=== PATIENT | male | born 1970 | race Caucasian/White ===

== ENCOUNTER 2018-03-03 18:17 | Emergency (ER) | payer BC, MEDICAID ==
[~2018-03-03] VITALS: Ht 180.3 cm; Wt 97.0 kg
[2018-03-03] MEDS ORDERED: DEXT10TA4 PO (18:24)
[2018-03-03] MEDS ORDERED: vitamin d (18:24)
[2018-03-03] MEDS ORDERED: SODIUM CHLORIDE 0.9% 1,000 ML IV ONE (18:37)
[2018-03-03] MEDS ORDERED: LORAZEPAM 2MG/ML CPJ IV ONE (18:45)
[2018-03-03 19:07] LABS: CHLORIDE 104 mEq/L (98-107)
[2018-03-03 19:08] LABS: BASOPHILS % 0.3 % (0.0-2.0); EOSINOPHILS % 0.3 % (0.0-5.0); HEMATOCRIT. 37.4 % (42.0-52.0); HEMOGLOBIN. 12.2 g/dL (14.0-18.0); LYMPHOCYTES % 23.6 % (20.0-50.0); MEAN CORPUSCULAR HEMOGLOBIN 21.2 pg (28.0-32.0); MEAN CORPUSCULAR VOLUME 64.7 fL (80.0-94.0); MONOCYTES % 7.8 % (2.0-8.0); PLATELET 213 x1000/uL (130-400); RED BLOOD CELL COUNT 5.78 mill/uL (4.7-6.1); RED CELL DISTRIBUTION WIDTH 15.8 % (11.6-14.6)
[2018-03-03 19:10] LABS: ETHANOL BLOOD 19 mg/dL
[2018-03-03 19:25] LABS: PLATELET ESTIMATE NORMAL
[2018-03-04 00:09] VITALS: BP 151/91
== END 2018-03-04 00:10 | disposition home or self-care (01) ==
LOC: ER 18:17
DX: F41.1 Generalized anxiety disorder (principal); F43.0 Acute stress reaction; T43.621A Poisoning by amphetamines, accidental (unintentional), initial encounter; F10.10 Alcohol abuse, uncomplicated; I10 Essential (primary) hypertension; F90.9 Attention-deficit hyperactivity disorder, unspecified type; F17.200 Nicotine dependence, unspecified, uncomplicated; Z88.6 Allergy status to analgesic agent
CPT/HCPCS: 36415; 80048; 85025; 96361; 96374; 99284; G0482; J2060; J7030